=== PATIENT | female | born 1975 | race Caucasian/White ===

== ENCOUNTER → 2016-08-17 | Outpatient (CLI) | payer BC ==
[~2016-08-17] MED LIST: ADDERALL 10 MG10 MG PO; IBUPROFEN 800800 MG PO; LAMICTAL XR100 MG PO; NAPROSYN500 MG PO; NORCO 5-325 TA1 EACH PO; PERCOCET 5-3251 EACH PO; VALTREX1000 MG PO; XANAX 0.5 MG0.5 M1 PO
== END ==
LOC: RAD 08:44
DX: Z12.31 Encounter for screening mammogram for malignant neoplasm of breast (principal)

== ENCOUNTER 2019-08-31 08:20 | Emergency (ER) | payer BC ==
[~2019-08-31] VITALS: Ht 160 cm; Wt 72.6 kg
[2019-08-31] MEDS ORDERED: LOESTRIN FE 1-1 EACH PO (08:38)
[2019-08-31] MEDS ORDERED: WELLBUTRIN 75 M75 M1 PO (08:38)
[2019-08-31] MEDS ORDERED: KEFLEX500 M1 PO (09:45)
[2019-08-31 10:11] VITALS: BP 130/75
== END 2019-08-31 10:12 | disposition home or self-care (01) ==
LOC: ER 08:20
DX: S90.562A Insect bite (nonvenomous), left ankle, initial encounter (principal); L08.9 Local infection of the skin and subcutaneous tissue, unspecified; Z87.891 Personal history of nicotine dependence; Z79.1 Long term (current) use of non-steroidal anti-inflammatories (NSAID); Z79.899 Other long term (current) drug therapy; W57.XXXA Bitten or stung by nonvenomous insect and other nonvenomous arthropods, initial encounter; Y93.89 Activity, other specified; Y92.89 Other specified places as the place of occurrence of the external cause; Y99.8 Other external cause status